=== PATIENT | female | born 1985 | race Caucasian/White ===

== ENCOUNTER 2017-02-08 14:16 | Emergency (ER) | payer SELFPAY ==
[2017-02-08 14:22] VITALS: TEMP 98.4
[2017-02-08 14:48] LABS: COLOR YELLOW; LEUKOCYTE ESTERASE,URINE NEGATIVE (NEGATIVE); NITRITE,URINE NEGATIVE (NEGATIVE)
[2017-02-08 14:50] LABS: BACTERIA TRACE /hpf (NONE SEEN); MUCUS TRACE /lpf (NONE-1+); RBC,URINE 25-50 /hpf (0-3)
--- NOTE | 2017-02-08 15:16 | EDPHY ---
H & P Stated Complaint: R flank pain radiating to R lower quad since this am-- Time Seen by Provider: 02/08/17 15:10 - Personal History LMP (Females 10-55): 8-14 Days Ago Current Tetanus/Diphtheria Vaccine: Unsure Current Tetanus Diphtheria and Acellular Pertussis (TDAP): Unsure - Medical/Surgical History Hx Asthma: No Hx Chronic Respiratory Disease: No Hx Diabetes: No Hx Cardiac Disease: No Hx Renal Disease: No Hx Cirrhosis: No Hx Alcoholism: No Hx HIV/AIDS: No Hx Splenectomy or Spleen Trauma: No Other PMH: kidney stones. appy 2016 - Social History Smoking Status: Never smoked Constitutional: Initial Vital Signs Temperature (C) 36.9 C 02/08/17 14:19 Heart Rate 75 02/08/17 14:19 Respiratory Rate 16 02/08/17 14:19 Blood Pressure 122/80 H 02/08/17 14:19 O2 Sat (%) 98 02/08/17 14:19 O2 Delivery Mode Room Air Allergies/Adverse Reactions: No Known Allergies Allergy (Unverified 02/08/17 14:18) Home Medications: Medication Instructions Recorded oxyCODONE IR [Oxycodone Ir (*)] 5 - 10 mg PO Q6 PRN #20 tab 02/08/17 Medical Decision Making - Diagnostics Imaging Results: Imaging Impressions Abdomen/Pelvis Ultrasound 02/08/17 15:30 Impression: Negative for nephrolithiasis or obstructive uropathy. Results called and discussed with Stiven Franco MD on 02/08/2017 at 16:43 Abdomen/Pelvis CT 02/08/17 17:15 Impression: 1. Nonobstructive calculus lower pole right kidney and mid to upper left kidney. 2. Benign-appearing hemorrhagic or ovarian cyst right adnexa with smooth margins. Consider follow-up ultrasound in 2-3 months if this cannot be followed on physical exam to confirm resolution. Attention: This CT examination is specifically designed to evaluate patients who are clinically suspected of having acute obstructive uropathy. This examination does not use radiographic contrast, and as such, provides only a limited evaluation of the abdomen, pelvis and retroperitoneum. If there is further clinical suspicion for pathological conditions other than obstructive uropathy, a complete CT evaluation of the abdomen and pelvis utilizing intravenous, oral, and rectal contrast should be considered. Findings discussed with Stiven Franco MD at 18:01 hour, 02/08/2017. Imaging: Discussed imaging studies w/ scallop binder Radiologist ED Course/Re-evaluation: CHIEF COMPLAINT: Right flank pain HISTORY OF PRESENT ILLNESS: The patient is a 31 y/o female with a history of 2 prior kidney stones complaining of acute onset right flank pain beginning this morning. Her pain is now radiating towards her bladder on the right side and feels similar to prior kidney stones. She denies vomiting, fever, dysuria. She is otherwise healthy. REVIEW OF SYSTEMS: A 10 point review of systems was performed and is negative with the exception of the elements mentioned in the history of present illness. Patient notes she recently burned her right forearm. She denies any associated complications from this. PHYSICAL EXAM: HR, BP, O2 Sat, RR. Temp noted General Appearance: Alert, well hydrated, appropriate, and uncomfortable- appearing. Head: Atraumatic without scalp tenderness or obvious injury Eyes: Pupils equal, round, reactive to light and accommodation, EOMI, no trauma , no injection. Ears: Clear bilaterally, no perforation, normal landmarks Nose: Atraumatic, no rhinorrhea, clear. Throat: There is no erythema or exudates, no lesions, normal tonsils, mucus membranes moist. Neck: Supple, nontender, no lymphadenopathy. Respiratory: No retractions, no distress, no wheezes, and no accessory muscle use. Lungs are clear to auscultation bilaterally. Cardiovascular: Regular rate and rhythm, no murmurs, rubs, or gallops. Good capillary refill all extremities. Gastrointestinal: Abdomen is soft, nontender, non-distended, no masses, no rebound, no guarding, no peritoneal signs. Musculoskeletal: Right CVA tenderness. Normal active ROM of all extremities, atraumatic. Neurological: Alert, appropriate, and interactive. Nonfocal neuro exam. Skin: No rashes, good turgor, no nodules on palpation. Superficial burn on right forearm. Past medical history: Kidney stones Past surgical history: appendectomy Family history: noncontributory Social history: Student DIAGNOSTICS/PROCEDURES/CRITICAL CARE TIME: Kidney US: negative for nephrolithiasis Abdominal CT: negative for acute process DIFFERENTIAL DIAGNOSIS: The differential diagnosis for the patient's flank pain included but was not limited to musculoskeletal causes, kidney stone, pyelonephritis, shingles, diverticulitis, appendicitis, and aortic aneurysm. MEDICAL DECISION MAKING: This is a healthy 31 y/o female with a history of kidney stones who presents with acute onset right flank pain this morning. She has severe right CVA tenderness on exam and RBC in her UA, which is suspicious for a kidney stone. Plan for IV, labs, US, and symptom management. 1.0mg IV Dilaudid, 30mg IV Toradol, 4mg IV Zofran, and 1L IV NS administered for symptoms. Reassessed patient and discussed work up thus far. She is continuing to have significant right CVA tenderness on exam. Additional 1.0mg IV Dilaudid administered. I recommended a CT of her abdomen due to continued pain and inability to identify source of pain on US. CT did not show acute process or obvious cause for patient's pain. I think it's likely she passed a kidney stone given her symptoms and UA. She will be discharged in good condition with standard kidney stone instructions, urology follow up, and pain medication. She is comfortable with this plan. - Data Points Laboratory Results: Laboratory Results 02/08/17 15:05 02/08/17 15:05 02/08/17 02/08/17 02/08/17 Unknown 15:05 15:05 WBC RBC Hgb POC Hgb 14.3 gm/dL gm/dL (12.6-16.3) Hct POC Hct 42 % % (38-47) MCV MCH MCHC RDW Plt Count MPV Neut % (Auto) Lymph % (Auto) [place] % (Auto) Eos % (Auto) Baso % (Auto) Nucleat RBC Rel Count Absolute Neuts (auto) Absolute Lymphs (auto) Absolute Monos (auto) Absolute Eos (auto) Absolute Basos (auto) Absolute Nucleated RBC Immature Gran % Immature Gran # POC Sodium 141 mEq/L mEq/L (134-144) Sodium POC Potassium 3.8 mEq/L mEq/L (3.3-5.0) Potassium POC Chloride 104 mEq/L mEq/L (97-110) Chloride Carbon Dioxide Anion Gap POC BUN 12 mg/dL mg/dL (7-23) BUN Creatinine POC Creatinine 0.6 mg/dL mg/dL (0.6-1.0) Estimated GFR Glucose POC Glucose 86 mg/dL mg/dL (70-100) Calcium Beta HCG, Qual NEGATIVE Urine Color YELLOW Urine Appearance HAZY Urine pH 7.0 (5.0-7.5) Ur Specific [place] 1.015 (1.002-1.030) Urine Protein NEGATIVE (NEGATIVE) Urine Ketones NEGATIVE (NEGATIVE) Urine Blood 3+ H (NEGATIVE) Urine Nitrate NEGATIVE (NEGATIVE) Urine Bilirubin NEGATIVE (NEGATIVE) Urine Urobilinogen NEGATIVE EU EU (0.2-1.0) Ur Leukocyte Esterase NEGATIVE (NEGATIVE) Urine RBC 25-50 /hpf H /hpf (0-3) Urine WBC 1-3 /hpf /hpf (0-3) Ur Epithelial Cells TRACE /lpf /lpf (NONE-1+) Urine Bacteria TRACE /hpf H /hpf (NONE SEEN) Urine Mucus TRACE /lpf /lpf (NONE-1+) Urine Glucose NEGATIVE (NEGATIVE) 02/08/17 02/08/17 15:05 15:05 WBC 8.65 10^3/uL 10^3/uL (3.80-9.50) RBC 4.33 10^6/uL 10^6/uL (4.18-5.33) Hgb 13.2 g/dL g/dL (12.6-16.3) POC Hgb Hct 39.2 % % (38.0-47.0) POC Hct MCV 90.5 fL fL (81.5-99.8) MCH 30.5 pg pg (27.9-34.1) MCHC 33.7 g/dL g/dL (32.4-36.7) RDW 12.8 % % (11.5-15.2) Plt Count 267 10^3/uL 10^3/uL (150-400) MPV 9.1 fL fL (8.7-11.7) Neut % (Auto) 72.0 % % (39.3-74.2) Lymph % (Auto) 20.1 % % (15.0-45.0) [place] % (Auto) 6.0 % % (4.5-13.0) Eos % (Auto) 1.0 % % (0.6-7.6) Baso % (Auto) 0.7 % % (0.3-1.7) Nucleat RBC Rel Count 0.2 % % (0.0-0.2) Absolute Neuts (auto) 6.22 10^3/uL 10^3/uL (1.70-6.50) Absolute Lymphs (auto) 1.74 10^3/uL 10^3/uL (1.00-3.00) Absolute Monos (auto) 0.52 10^3/uL 10^3/uL (0.30-0.80) Absolute Eos (auto) 0.09 10^3/uL 10^3/uL (0.03-0.40) Absolute Basos (auto) 0.06 10^3/uL 10^3/uL (0.02-0.10) Absolute Nucleated RBC 0.02 10^3/uL H 10^3/uL (0-0.01) Immature Gran % 0.2 % % (0.0-1.1) Immature Gran # 0.02 10^3/uL 10^3/uL (0.00-0.10) POC Sodium Sodium 140 mEq/L mEq/L (134-144) POC Potassium Potassium 3.9 mEq/L mEq/L (3.5-5.2) POC Chloride Chloride 108 mEq/L mEq/L (97-110) Carbon Dioxide 19 mEq/l L mEq/l (22-31) Anion Gap 13 mEq/L mEq/L (8-16) POC BUN BUN 12 mg/dL mg/dL (7-23) Creatinine 0.7 mg/dL mg/dL (0.6-1.0) POC Creatinine Estimated GFR > 60 Glucose 83 mg/dL mg/dL (70-100) POC Glucose Calcium 9.6 mg/dL mg/dL (8.5-10.4) Beta HCG, Qual Urine Color Urine Appearance Urine pH Ur Specific [place] Urine Protein Urine Ketones Urine Blood Urine Nitrate Urine Bilirubin Urine Urobilinogen Ur Leukocyte Esterase Urine RBC Urine WBC Ur Epithelial Cells Urine Bacteria Urine Mucus Urine Glucose Medications Given: Discontinued Medications Hydromorphone HCl (Dilaudid) 1 mg IVP EDNOW ONE Stop: 02/08/17 15:30 Last Admin: 02/08/17 15:46 Dose: Not Given Hydromorphone HCl (Dilaudid) 1 mg IVP EDNOW ONE Stop: 02/08/17 15:30 Last Admin: 02/08/17 15:34 Dose: 1 mg Hydromorphone HCl (Dilaudid) 1 mg IVP EDNOW ONE Stop: 02/08/17 17:20 Last Admin: 02/08/17 17:20 Dose: 1 mg Sodium Chloride (Ns) 1,000 mls @ 0 mls/hr IV ONCE ONE PRN Reason: Wide Open Stop: 02/08/17 15:30 Last Admin: 02/08/17 15:35 Dose: 1,000 mls Ketorolac Tromethamine (Toradol) 30 mg IVP EDNOW ONE Stop: 02/08/17 15:30 Last Admin: 02/08/17 15:46 Dose: Not Given Ketorolac Tromethamine (Toradol) 30 mg IVP EDNOW ONE Stop: 02/08/17 15:30 Last Admin: 02/08/17 15:46 Dose: Not Given Ketorolac Tromethamine (Toradol) 15 mg IVP EDNOW ONE Stop: 02/08/17 15:36 Last Admin: 02/08/17 15:36 Dose: 15 mg Ketorolac Tromethamine (Toradol) 15 mg IVP ONCE ONE Stop: 02/08/17 15:36 Last Admin: 02/08/17 15:37 Dose: 15 mg Ondansetron HCl (Zofran) 4 mg IVP EDNOW ONE Stop: 02/08/17 15:30 Last Admin: 02/08/17 15:35 Dose: 4 mg Ondansetron HCl (Zofran) 4 mg IVP EDNOW ONE Stop: 02/08/17 15:30 Last Admin: 02/08/17 15:46 Dose: Not Given Point of Care Test Results: 02/08/17 15:05 POC Sodium 141 POC Potassium 3.8 POC Chloride 104 POC BUN 12 POC Creatinine 0.6 POC Glucose 86 Departure - Departure Disposition: Home, Routine, Self-Care Clinical Impression: Kidney stone, Flank pain Condition: Good Instructions: Kidney Stones (ED), Flank Pain (ED) Additional Instructions: 1. Take 800mg ibuprofen every 6-8 hours as needed for pain. You received a medication (Toradol) similar to ibuprofen here, so wait until tomorrow morning to take additional ibuprofen. 2. Take OxyIR as prescribed when needed for severe pain. 3. Follow up with your urologist in the next week. 4. Your CT showed an incidental ovarian cyst that will require follow up with your OBGYN in 2-3 months. 5. Return to the ED for any worsening of condition. Referrals: NONE *PRIMARY CARE P,. [Primary Care Provider] - As per Instructions Rob Mcdaniel MD [Medical Doctor] - As per Instructions Prescriptions: oxyCODONE IR [Oxycodone Ir (*)] 5 - 10 mg PO Q6 PRN #20 tab PRN Reason: Pain, Severe Report Scribed for: Stiven Franco Report Scribed by: Divine Brown Date of Report: 02/08/17 Time of Report: 16:54
[2017-02-08 15:21] LABS: % IMMATURE GRANULYOCYTES 0.2 % (0.0-1.1); ABSOLUTE IMMATURE GRANULOCYTES 0.02 10^3/uL (0.00-0.10); ABSOLUTE NRBC COUNT 0.02 10^3/uL (0-0.01); ADD DIFF? NO; ADD MORPH? NO; ADD SCAN? NO; ATYPICAL LYMPHOCYTE FLAG 30 (0-99); FRAGMENT RBC FLAG 0 (0-99); HEMATOCRIT 39.2 % (38.0-47.0); HEMOGLOBIN 13.2 g/dL (12.6-16.3); LEFT SHIFT FLG 0 (0-99); LIPEMIA HEMOLYSIS FLAG 80 (0-99); MEAN CELL HEMOGLOBIN 30.5 pg (27.9-34.1); MEAN CELL HEMOGLOBIN CONCENTR. 33.7 g/dL (32.4-36.7); MEAN CELL VOLUME 90.5 fL (81.5-99.8); MEAN PLATELET VOLUME 9.1 fL (8.7-11.7); NRBC-AUTO% 0.2 % (0.0-0.2); PLATELET CLUMPS FLAG 10 (0-99); PLATELET COUNT 267 10^3/uL (150-400); RED BLOOD CELL COUNT 4.33 10^6/uL (4.18-5.33); RED CELL DISTRIBUTION WIDTH 12.8 % (11.5-15.2)
[2017-02-08] MEDS ORDERED: ONDANSETRON 4 MG/2 ML VIAL IVP ONE ×2 (15:29)
[2017-02-08] MEDS ORDERED: HYDROmorphONE/DILAUDID 1 MG/ML SYR IVP ONE ×3 (15:29→17:19)
[2017-02-08] MEDS ORDERED: KETOROLAC 30 MG/1 ML SDV IVP ONE ×2 (15:29)
[2017-02-08] MEDS ORDERED: NS 1,000 ML IV ONE (15:29)
[2017-02-08] MEDS ORDERED: KETOROLAC 15 MG/1 ML SDV IVP ONE ×2 (15:35)
[2017-02-08 15:36] LABS: ANION GAP 13 mEq/L (8-16); CALCIUM 9.6 mg/dL (8.5-10.4); CARBON DIOXIDE 19 mEq/l (22-31); CHLORIDE 108 mEq/L (97-110); CREATININE 0.7 mg/dL (0.6-1.0); GLOMERULAR FILTRATION RATE > 60; GLUCOSE 83 mg/dL (70-100); POTASSIUM 3.9 mEq/L (3.5-5.2); SODIUM 140 mEq/L (134-144)
[2017-02-08 18:53] VITALS: BP 114/68; PULSE 65; RESP 18; O2SAT 98
== END 2017-02-08 19:29 | disposition home or self-care (01) ==
DX: N20.0 Calculus of kidney (principal); E86.9 Volume depletion, unspecified; Z90.49 Acquired absence of other specified parts of digestive tract
CPT/HCPCS: 82947-QW; 96374; J1170